=== PATIENT | male | born 1945 | race Caucasian/White ===

== ENCOUNTER 2022-11-10 14:01 | Inpatient (IN) ==
[2022-11-10 14:46] LABS: Basophils # 0.1 10*3/uL (0.0-0.2); Basophils % 0.4 % (0.0-0.8); Eosinophils % 0.1 % (0.00-10.9); Hematocrit 51.7 VOL% (42.0-52.0); Hemoglobin 17.7 GM/DL (14.0-18.0); Immature Granulocytes % 0.6 %; Immature Granulocytes Absolute 0.08 #; Lymphocytes # 0.9 10*3/uL (1.4-4.0); Lymphocytes % 6.8 % (21.2-54.2); Mean Corpuscular HGB Conc 34.2 GM/DL (32-36); Mean Corpuscular Volume 97.7 FL (87-102); Mean Platelet Volume 11.4 FL (9.6-12.0); Monocytes # 0.6 10*3/uL (0.11-0.8); Monocytes % 4.8 % (1.7-12.7); Neutrophils % 87.3 % (38.7-73.9); Platelet Count 182 T/CUMM (130-400); Red Blood Count 5.29 MC/CUMM (3.8-5.5); Red Cell Distribution Width 12.7 % (9.3-17.3); White Blood Count 13.2 T/CUMM (4-12)
[2022-11-10 15:11] LABS: Albumin 4.9 G/DL (3.4-5.0); Bilirubin,Total 1.1 MG/DL (0.20-1.00); Calcium 10.5 MG/DL (8.5-10.1); Osmolality,Calculated 282.7 MOS/KG (273-304); Potassium 4.8 MMOL/L (3.5-5.1); Total Protein 8.4 G/DL (6.4-8.2)
[2022-11-10] MEDS ORDERED: metroNIDAZOLE INJ 500 MG/100 ML PREMIX IV STA (15:17)
[2022-11-10] MEDS ORDERED: ONDANSETRON 4 MG/2 ML VIAL IV STA (15:17)
[2022-11-10] MEDS ORDERED: SODIUM CHLORIDE 0.9% 1,000 ML IV STA (15:17)
[2022-11-10] MEDS ORDERED: HYDROmorphone 1 MG/1 ML SYRINGE IV STA (16:08)
[2022-11-10] MEDS ORDERED: PIPERACILLIN/TAZOBACTAM 3,375 MG in SODIUM CHLORIDE 0.9% 100 ML IV STA (16:08)
[2022-11-10] MEDS ORDERED: LACTATED RINGERS 2,200 ML IV ONE (17:03)
[2022-11-10] MEDS ORDERED: ALBUMIN 5% 25.0 GM/500 ML VIAL IV ONE (17:04)
[2022-11-10] MEDS ORDERED: propofoL 200 MG/20 ML VIAL IV ONE (17:10)
[2022-11-10] MEDS ORDERED: ROCURONIUM 50 MG/5 ML VIAL IV ONE (17:10)
[2022-11-10] MEDS ORDERED: LIDOCAINE 2% 5 ML VIAL ONE (17:10)
[2022-11-10] MEDS ORDERED: SUCCINYLCHOLINE 200 MG/10 ML VIAL ONE (17:10)
[2022-11-10] MEDS ORDERED: fentaNYL 100 MCG/2 ML VIAL ONE (17:10)
[2022-11-10] MEDS ORDERED: ETOMIDATE 40 MG/20 ML VIAL IV ONE (17:10)
[2022-11-10] MEDS ORDERED: LACTATED RINGERS 1,200 ML IV ONE (17:18)
[2022-11-10] MEDS ORDERED: SODIUM CHLORIDE 0.9% 1,000 ML IV PRN (17:19)
[2022-11-10] MEDS ORDERED: PHENYLEPHRINE 1 MG/10 ML SYRINGE IV ONE (18:00)
[2022-11-10] MEDS ORDERED: PROTHROMBIN COMPLEX IV ONE (18:00)
[2022-11-10] MEDS ORDERED: SODIUM CHLORIDE 0.9% 250 ML IV ONE (18:01)
[2022-11-10] MEDS ORDERED: PHENYLEPHRINE 10 MG/1 ML VIAL IV ONE (18:01)
[2022-11-10] MEDS ORDERED: GLYCOPYRROLATE 0.4 MG/2 ML VIAL ONE (18:48)
[2022-11-10] MEDS ORDERED: NEOSTIGMINE 10 MG/10 ML VIAL ONE (18:48)
[2022-11-10] MEDS ORDERED: SODIUM CHLORIDE 0.9% 1,000 ML IV ONE (18:54)
[2022-11-10] MEDS ORDERED: LACTATED RINGERS 0 ML IV ONE (18:54)
[2022-11-10] MEDS ORDERED: SEVOFLURANE 1 UNIT/15 MINUTE INH ONE (19:06)
[2022-11-10] MEDS: DEXTROSE 5% LACTATED RINGERS 1,000 ML IV SCH (20:05)
[2022-11-10] MEDS: MONTELUKAST 10 MG TABLET PO SCH (20:06)
[2022-11-10] MEDS: ONDANSETRON 4 MG/2 ML VIAL IV PRN (20:12)
[2022-11-10 21:06] LABS: Hematocrit 42.8 VOL% (42.0-52.0); Hemoglobin 14.3 GM/DL (14.0-18.0)
[2022-11-10 21:25] LABS: Osmolality,Calculated 286.3 MOS/KG (273-304); Potassium 4.5 MMOL/L (3.5-5.1)
[2022-11-11] MEDS: PIPERACILLIN/TAZOBACTAM 3,375 MG in SODIUM CHLORIDE 0.9% 100 ML IV SCH ×3 (01:25→16:17)
[2022-11-11] MEDS: HYDROmorphone 1 MG/1 ML SYRINGE IV PRN ×3 (01:27→12:15)
[2022-11-11 03:25] LABS: Basophils % 0.4 % (0.0-0.8); Eosinophils % 0.7 % (0.00-10.9); Hematocrit 37.3 VOL% (42.0-52.0); Hemoglobin 12.8 GM/DL (14.0-18.0); Immature Granulocytes % 0.2 %; Immature Granulocytes Absolute 0.01 #; Lymphocytes # 0.6 10*3/uL (1.4-4.0); Lymphocytes % 10.8 % (21.2-54.2); Mean Corpuscular HGB Conc 34.3 GM/DL (32-36); Mean Corpuscular Volume 97.9 FL (87-102); Mean Platelet Volume 11.2 FL (9.6-12.0); Monocytes # 0.5 10*3/uL (0.11-0.8); Monocytes % 9.4 % (1.7-12.7); Neutrophils % 78.5 % (38.7-73.9); Platelet Count 138 T/CUMM (130-400); Red Blood Count 3.81 MC/CUMM (3.8-5.5); Red Cell Distribution Width 12.9 % (9.3-17.3); White Blood Count 5.6 T/CUMM (4-12)
[2022-11-11 03:40] LABS: Calcium 8.3 MG/DL (8.5-10.1); Potassium 4.3 MMOL/L (3.5-5.1)
[2022-11-11] MEDS: DEXTROSE 5% LACTATED RINGERS 1,000 ML IV SCH ×4 (04:09→22:55)
[2022-11-11] MEDS: PANTOPRAZOLE 40 MG VIAL IV SCH (08:25)
[2022-11-11 10:51] LABS: Hematocrit 37.9 VOL% (42.0-52.0); Hemoglobin 12.6 GM/DL (14.0-18.0)
[2022-11-11] MEDS ORDERED: KETOROLAC 15 MG/1 ML VIAL IV PRN (11:52)
[2022-11-11] MEDS: METHOCARBAMOL INJ 500 MG in SODIUM CHLORIDE 0.9% 100 ML IV SCH ×2 (13:14→20:47)
[2022-11-11] MEDS ORDERED: SOTALOL 80 MG TABLET PO ONE (15:45)
[2022-11-11 18:24] LABS: Basophils % 0.1 % (0.0-0.8); Eosinophils % 0.5 % (0.00-10.9); Hematocrit 35.9 VOL% (42.0-52.0); Hemoglobin 12.2 GM/DL (14.0-18.0); Immature Granulocytes % 0.4 %; Immature Granulocytes Absolute 0.03 #; Lymphocytes # 1.1 10*3/uL (1.4-4.0); Lymphocytes % 12.8 % (21.2-54.2); Mean Corpuscular Volume 98.6 FL (87-102); Monocytes # 1.3 10*3/uL (0.11-0.8); Monocytes % 15.9 % (1.7-12.7); Neutrophils % 70.3 % (38.7-73.9); Platelet Count 142 T/CUMM (130-400); Red Blood Count 3.64 MC/CUMM (3.8-5.5); Red Cell Distribution Width 12.8 % (9.3-17.3); White Blood Count 8.2 T/CUMM (4-12)
[2022-11-11 19:00] LABS: Eosinophils 1 % (0-10); Lymphocytes 15 % (20-55); Platelet Estimate Adequate; Total Cells Counted 100
[2022-11-11 19:02] LABS: Polychromasia Slight; Target Cells Slight
[2022-11-11 19:04] LABS: Bilirubin,Urine Negative (Negative); Blood, Urine Moderate mg/dL (Negative); Glucose,Urine (UA) Negative (Negative); Ketones,Urine Negative (Negative); Nitrite,Urine Negative (Negative); Protein,Urine Trace mg/dL (Negative); Urine Appearance Clear (Clear); Urine Color Yellow (Yellow); Urine Specific Gravity >= 1.030 (1.001-1.035); Urine Urobilinogen 0.2 eU/dL (<2.0); Urine pH 5.5 (4.5-8.0)
[2022-11-11 19:07] LABS: RBC,Urine 90 /HPF (0-4)
[2022-11-11] MEDS: AMITRIPTYLINE 25 MG TABLET PO SCH (20:48)
[2022-11-11] MEDS: MONTELUKAST 10 MG TABLET PO SCH (20:48)
[2022-11-11] MEDS: SOTALOL 80 MG TABLET PO SCH (20:48)
[2022-11-11] MEDS: TAMSULOSIN 0.4 MG CAPSULE PO SCH (20:48)
[2022-11-12] MEDS: PIPERACILLIN/TAZOBACTAM 3,375 MG in SODIUM CHLORIDE 0.9% 100 ML IV SCH ×3 (00:54→18:15)
[2022-11-12] MEDS: ONDANSETRON 4 MG/2 ML VIAL IV PRN ×4 (01:46→20:34)
[2022-11-12] MEDS: HYDROmorphone 1 MG/1 ML SYRINGE IV PRN ×2 (01:47→06:24)
[2022-11-12] MEDS: METHOCARBAMOL INJ 500 MG in SODIUM CHLORIDE 0.9% 100 ML IV SCH ×3 (05:07→20:02)
[2022-11-12 06:04] LABS: Calcium 9.1 MG/DL (8.5-10.1); Osmolality,Calculated 284.5 MOS/KG (273-304); Potassium 4.4 MMOL/L (3.5-5.1)
[2022-11-12 06:47] LABS: Basophils % 0.4 % (0.0-0.8); Eosinophils % 0.4 % (0.00-10.9); Hematocrit 32.6 VOL% (42.0-52.0); Hemoglobin 10.9 GM/DL (14.0-18.0); Immature Granulocytes % 0.4 %; Immature Granulocytes Absolute 0.02 #; Lymphocytes # 0.8 10*3/uL (1.4-4.0); Lymphocytes % 15.8 % (21.2-54.2); Mean Corpuscular HGB Conc 33.4 GM/DL (32-36); Mean Corpuscular Volume 98.5 FL (87-102); Mean Platelet Volume 11.1 FL (9.6-12.0); Monocytes # 0.6 10*3/uL (0.11-0.8); Monocytes % 13.5 % (1.7-12.7); Neutrophils % 69.5 % (38.7-73.9); Platelet Count 127 T/CUMM (130-400); Red Blood Count 3.31 MC/CUMM (3.8-5.5); Red Cell Distribution Width 12.9 % (9.3-17.3); White Blood Count 4.7 T/CUMM (4-12)
[2022-11-12 07:19] LABS: Band Neutrophils 5 % (0-10); Eosinophils 1 % (0-10); Lymphocytes 15 % (20-55); Total Cells Counted 100
[2022-11-12 07:20] LABS: Platelet Estimate Adequate
[2022-11-12] MEDS: DEXTROSE 5% LACTATED RINGERS 1,000 ML IV SCH ×2 (09:57→16:30)
[2022-11-12] MEDS: ASPIRIN EC 81 MG TABLET PO SCH (09:58)
[2022-11-12] MEDS: SOTALOL 80 MG TABLET PO SCH ×2 (09:58→20:35)
[2022-11-12] MEDS: PANTOPRAZOLE 40 MG VIAL IV SCH (09:58)
[2022-11-12] MEDS: TAMSULOSIN 0.4 MG CAPSULE PO SCH ×2 (09:58→20:35)
[2022-11-12] MEDS ORDERED: LACTATED RINGERS 500 ML IV ONE (15:11)
[2022-11-12] MEDS: PHENOL 1.4% THROAT SPRAY 177 ML BOTTLE PO PRN ×2 (17:15→20:30)
[2022-11-12] MEDS: AMITRIPTYLINE 25 MG TABLET PO SCH (20:35)
[2022-11-12] MEDS: MONTELUKAST 10 MG TABLET PO SCH (20:36)
[2022-11-13] MEDS: PIPERACILLIN/TAZOBACTAM 3,375 MG in SODIUM CHLORIDE 0.9% 100 ML IV SCH ×3 (00:56→16:40)
[2022-11-13] MEDS: HYDROmorphone 1 MG/1 ML SYRINGE IV PRN ×2 (00:58→21:11)
[2022-11-13] MEDS: DEXTROSE 5% LACTATED RINGERS 1,000 ML IV SCH ×3 (02:25→17:20)
[2022-11-13] MEDS: METHOCARBAMOL INJ 500 MG in SODIUM CHLORIDE 0.9% 100 ML IV SCH ×3 (04:16→20:07)
[2022-11-13 04:42] LABS: Basophils % 0.7 % (0.0-0.8); Eosinophils # 0.2 10*3/uL (0.0-0.87); Eosinophils % 5.3 % (0.00-10.9); Hematocrit 28.7 VOL% (42.0-52.0); Hemoglobin 9.6 GM/DL (14.0-18.0); Immature Granulocytes % 1.4 %; Immature Granulocytes Absolute 0.04 #; Lymphocytes # 0.8 10*3/uL (1.4-4.0); Lymphocytes % 27.7 % (21.2-54.2); Mean Corpuscular HGB Conc 33.4 GM/DL (32-36); Mean Platelet Volume 11.7 FL (9.6-12.0); Monocytes # 0.5 10*3/uL (0.11-0.8); Monocytes % 17.2 % (1.7-12.7); Neutrophils % 47.7 % (38.7-73.9); Platelet Count 107 T/CUMM (130-400); Red Blood Count 2.87 MC/CUMM (3.8-5.5); Red Cell Distribution Width 12.7 % (9.3-17.3); White Blood Count 2.9 T/CUMM (4-12)
[2022-11-13 05:04] LABS: Calcium 8.6 MG/DL (8.5-10.1); Potassium 3.5 MMOL/L (3.5-5.1)
[2022-11-13 07:49] LABS: Band Neutrophils 22 % (0-10); Eosinophils 4 % (0-10); Lymphocytes 31 % (20-55); Platelet Estimate Adequate; Total Cells Counted 100
[2022-11-13 07:50] LABS: Atypical Lymphocytes Few; Macrocytosis 1+
[2022-11-13] MEDS: PANTOPRAZOLE 40 MG VIAL IV SCH (08:56)
[2022-11-13] MEDS: TAMSULOSIN 0.4 MG CAPSULE PO SCH ×2 (08:56→21:10)
[2022-11-13] MEDS: ASPIRIN EC 81 MG TABLET PO SCH (08:56)
[2022-11-13] MEDS: SOTALOL 80 MG TABLET PO SCH ×2 (08:56→21:10)
[2022-11-13] MEDS: AMITRIPTYLINE 25 MG TABLET PO SCH (21:10)
[2022-11-13] MEDS: MONTELUKAST 10 MG TABLET PO SCH (21:10)
[2022-11-14] MEDS: PIPERACILLIN/TAZOBACTAM 3,375 MG in SODIUM CHLORIDE 0.9% 100 ML IV SCH ×3 (00:25→16:33)
[2022-11-14] MEDS: DEXTROSE 5% LACTATED RINGERS 1,000 ML IV SCH ×3 (01:59→16:42)
[2022-11-14] MEDS: HYDROmorphone 1 MG/1 ML SYRINGE IV PRN ×2 (02:02→20:41)
[2022-11-14] MEDS: METHOCARBAMOL INJ 500 MG in SODIUM CHLORIDE 0.9% 100 ML IV SCH ×3 (04:42→20:13)
[2022-11-14 07:17] LABS: Basophils % 0.8 % (0.0-0.8); Eosinophils # 0.3 10*3/uL (0.0-0.87); Eosinophils % 7.2 % (0.00-10.9); Hematocrit 29.5 VOL% (42.0-52.0); Hemoglobin 9.6 GM/DL (14.0-18.0); Immature Granulocytes % 0.5 %; Immature Granulocytes Absolute 0.02 #; Lymphocytes # 0.9 10*3/uL (1.4-4.0); Mean Corpuscular HGB Conc 32.5 GM/DL (32-36); Mean Corpuscular Volume 103.1 FL (87-102); Mean Platelet Volume 10.3 FL (9.6-12.0); Monocytes # 0.7 10*3/uL (0.11-0.8); Monocytes % 16.8 % (1.7-12.7); Neutrophils % 52.7 % (38.7-73.9); Platelet Count 127 T/CUMM (130-400); Red Blood Count 2.86 MC/CUMM (3.8-5.5); Red Cell Distribution Width 13.1 % (9.3-17.3); White Blood Count 3.9 T/CUMM (4-12)
[2022-11-14 07:47] LABS: Calcium 8.5 MG/DL (8.5-10.1); Osmolality,Calculated 290.7 MOS/KG (273-304); Potassium 3.7 MMOL/L (3.5-5.1)
[2022-11-14 09:03] LABS: Anisocytosis Slight; Atypical Lymphocytes Few; Band Neutrophils 13 % (0-10); Eosinophils 8 % (0-10); Lymphocytes 28 % (20-55); Macrocytosis Slight; Nucleated Red Blood Cells 1 /100 WBC (0-5); Platelet Estimate Adequate; Total Cells Counted 100
[2022-11-14] MEDS: PANTOPRAZOLE 40 MG VIAL IV SCH (09:30)
[2022-11-14] MEDS: SOTALOL 80 MG TABLET PO SCH ×2 (09:30→20:40)
[2022-11-14] MEDS: ASPIRIN EC 81 MG TABLET PO SCH (09:30)
[2022-11-14] MEDS: TAMSULOSIN 0.4 MG CAPSULE PO SCH ×2 (09:30→20:40)
[2022-11-14] MEDS: AMITRIPTYLINE 25 MG TABLET PO SCH (20:40)
[2022-11-14] MEDS: MONTELUKAST 10 MG TABLET PO SCH (20:40)
[2022-11-15] MEDS: PIPERACILLIN/TAZOBACTAM 3,375 MG in SODIUM CHLORIDE 0.9% 100 ML IV SCH ×3 (01:09→17:36)
[2022-11-15] MEDS: DEXTROSE 5% LACTATED RINGERS 1,000 ML IV SCH ×3 (01:13→17:00)
[2022-11-15] MEDS: METHOCARBAMOL INJ 500 MG in SODIUM CHLORIDE 0.9% 100 ML IV SCH ×3 (04:16→21:36)
[2022-11-15] MEDS: HYDROmorphone 1 MG/1 ML SYRINGE IV PRN ×2 (04:22→20:51)
[2022-11-15] MEDS: PANTOPRAZOLE 40 MG VIAL IV SCH (09:01)
[2022-11-15] MEDS: TAMSULOSIN 0.4 MG CAPSULE PO SCH ×2 (09:02→20:51)
[2022-11-15] MEDS: ASPIRIN EC 81 MG TABLET PO SCH (09:02)
[2022-11-15] MEDS: SOTALOL 80 MG TABLET PO SCH ×2 (09:02→20:51)
[2022-11-15] MEDS: APIXABAN 5 MG TABLET PO SCH ×2 (18:10→20:51)
[2022-11-15] MEDS: MONTELUKAST 10 MG TABLET PO SCH (20:51)
[2022-11-15] MEDS: AMITRIPTYLINE 25 MG TABLET PO SCH (20:51)
[2022-11-16] MEDS: PIPERACILLIN/TAZOBACTAM 3,375 MG in SODIUM CHLORIDE 0.9% 100 ML IV SCH ×3 (00:20→17:45)
[2022-11-16] MEDS: DEXTROSE 5% LACTATED RINGERS 1,000 ML IV SCH ×3 (00:23→17:45)
[2022-11-16] MEDS: HYDROmorphone 1 MG/1 ML SYRINGE IV PRN ×2 (02:31→23:29)
[2022-11-16] MEDS: METHOCARBAMOL INJ 500 MG in SODIUM CHLORIDE 0.9% 100 ML IV SCH ×3 (04:25→20:57)
[2022-11-16] MEDS: TAMSULOSIN 0.4 MG CAPSULE PO SCH ×2 (08:21→20:57)
[2022-11-16] MEDS: SOTALOL 80 MG TABLET PO SCH ×2 (08:21→20:57)
[2022-11-16] MEDS: ASPIRIN EC 81 MG TABLET PO SCH (08:21)
[2022-11-16] MEDS: PANTOPRAZOLE 40 MG VIAL IV SCH (08:21)
[2022-11-16] MEDS: APIXABAN 5 MG TABLET PO SCH ×2 (08:22→20:57)
[2022-11-16] MEDS: MONTELUKAST 10 MG TABLET PO SCH (20:57)
[2022-11-16] MEDS: AMITRIPTYLINE 25 MG TABLET PO SCH (20:57)
[2022-11-17] MEDS: PIPERACILLIN/TAZOBACTAM 3,375 MG in SODIUM CHLORIDE 0.9% 100 ML IV SCH ×3 (01:19→16:23)
[2022-11-17] MEDS: METHOCARBAMOL INJ 500 MG in SODIUM CHLORIDE 0.9% 100 ML IV SCH ×3 (05:27→21:04)
[2022-11-17] MEDS: DEXTROSE 5% LACTATED RINGERS 1,000 ML IV SCH ×3 (07:42→14:49)
[2022-11-17] MEDS: TAMSULOSIN 0.4 MG CAPSULE PO SCH ×2 (08:58→21:01)
[2022-11-17] MEDS: SOTALOL 80 MG TABLET PO SCH ×2 (08:58→21:01)
[2022-11-17] MEDS: ASPIRIN EC 81 MG TABLET PO SCH (08:58)
[2022-11-17] MEDS: APIXABAN 5 MG TABLET PO SCH ×2 (08:58→21:01)
[2022-11-17] MEDS: PANTOPRAZOLE 40 MG VIAL IV SCH (09:03)
[2022-11-17] MEDS: MONTELUKAST 10 MG TABLET PO SCH (21:02)
[2022-11-17] MEDS: AMITRIPTYLINE 25 MG TABLET PO SCH (21:02)
[2022-11-17] MEDS: HYDROmorphone 1 MG/1 ML SYRINGE IV PRN (21:11)
[2022-11-18] MEDS: ONDANSETRON 4 MG/2 ML VIAL IV PRN (01:28)
[2022-11-18] MEDS: HYDROmorphone 1 MG/1 ML SYRINGE IV PRN (01:31)
[2022-11-18] MEDS: PIPERACILLIN/TAZOBACTAM 3,375 MG in SODIUM CHLORIDE 0.9% 100 ML IV SCH ×2 (01:32→10:14)
[2022-11-18] MEDS: DEXTROSE 5% LACTATED RINGERS 1,000 ML IV SCH ×2 (03:13→10:13)
[2022-11-18] MEDS: METHOCARBAMOL INJ 500 MG in SODIUM CHLORIDE 0.9% 100 ML IV SCH (05:34)
[2022-11-18] MEDS: APIXABAN 5 MG TABLET PO SCH ×2 (10:13→20:45)
[2022-11-18] MEDS: PANTOPRAZOLE 40 MG VIAL IV SCH (10:13)
[2022-11-18] MEDS: TAMSULOSIN 0.4 MG CAPSULE PO SCH ×2 (10:13→20:45)
[2022-11-18] MEDS: SOTALOL 80 MG TABLET PO SCH ×2 (10:13→20:45)
[2022-11-18] MEDS: ASPIRIN EC 81 MG TABLET PO SCH (10:13)
[2022-11-18] MEDS: MONTELUKAST 10 MG TABLET PO SCH (20:44)
[2022-11-18] MEDS: AMITRIPTYLINE 25 MG TABLET PO SCH (20:45)
[2022-11-19] MEDS ORDERED: HYDROmorphone 1 MG/1 ML SYRINGE IV PRN (06:45)
[2022-11-19] MEDS: SOTALOL 80 MG TABLET PO SCH (09:01)
[2022-11-19] MEDS: APIXABAN 5 MG TABLET PO SCH (09:01)
[2022-11-19] MEDS: TAMSULOSIN 0.4 MG CAPSULE PO SCH (09:01)
[2022-11-19] MEDS: ASPIRIN EC 81 MG TABLET PO SCH (09:01)
[2022-11-19] MEDS: PANTOPRAZOLE 40 MG VIAL IV SCH (09:02)
[2022-11-19 11:14] VITALS: BP 107/76
== END 2022-11-19 16:20 | disposition home or self-care (01) | DRG 329 ==
LOC: N.ED 14:01 → N.ICU 17:29 → N.3E 11-16 17:48
PROVIDERS: ADMIT Student in an Organized Health Care Education/Training Program; ATTEND Student in an Organized Health Care Education/Training Program